=== PATIENT | female | born 2000 | race Caucasian/White ===

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

== ENCOUNTER 2019-01-04 02:30 | Emergency (ER) | payer OTHER ==
[~2019-01-04] VITALS: Ht 157.5 cm; Wt 68.0 kg
[2019-01-04 02:30] VITALS: BP 141/79
--- NOTE | 2019-01-04 02:30 | NUR ---
BROUGHT IN BY AMBULANCE FROM HOME WITH C/O NAUSEA VOMITING AN HOUR AGO, SHE WAS GIVEN ZOFRAN 4 MG ODT ENROUTE.
--- NOTE | 2019-01-04 02:50 | NUR ---
SEEN AND EXAMINED BY TRUNG WITH ORDERS AND CARRIED OUT.
[2019-01-04] MEDS ORDERED: NACL 0.9% 1,000 ML IV ONE (03:00)
[2019-01-04] MEDS ORDERED: ONDANSETRON 4 MG/2 ML VIAL IVP ONE (03:00)
[2019-01-04] MEDS ORDERED: MORPHINE SULFATE 4 MG/ML SYR IVP ONE (03:00)
[2019-01-04] MEDS ORDERED: KETOROLAC 30 MG/ML VIAL IVP ONE (03:55)
--- NOTE | 2019-01-04 04:30 | NUR ---
ALL RESULTS BACK AND NOTED BY ERMD AND FOR D/C.
[2019-01-04 04:38] VITALS: BP 120/76
--- NOTE | 2019-01-04 04:38 | NUR ---
Patient discharged with v/s stable. Written and verbal after care instructions given and explained. Patient alert, oriented and verbalized understanding of instructions. Ambulatory with steady gait. All questions addressed prior to discharge. ID band removed. Patient advised to follow up with PMD. Rx of IBUPROFEN 800MG, ZOFRAN 4MG given. Patient educated on indication of medication including possible reaction and side effects. Opportunity to ask questions provided and answered.
== END 2019-01-04 04:38 | disposition home or self-care (01) ==
LOC: MED 02:30
DX: G43.909 Migraine, unspecified, not intractable, without status migrainosus (principal)
CPT/HCPCS: 81002; 81025; 96361; 96374; 96375; 99283; J1885; J2270; J2405; J7030